=== PATIENT | female | born 1960 | race Caucasian/White ===

== ENCOUNTER → 2016-05-06 | Outpatient (CLI) | payer OTHER | END | disposition home or self-care (01) | LOC: C.LABMFLN 11:44 | PROVIDERS: ATTEND Family Medicine | DX: R19.7 Diarrhea, unspecified (principal) ==

== ENCOUNTER → 2016-12-01 | Outpatient (CLI) | payer OTHER ==
--- NOTE | 2016-12-02 15:31 | MAMMOGRAPHY REPORT ---
BILATERAL DIGITAL SCREENING MAMMOGRAM TOMOSYNTHESIS WITH CAD: 12/01/2016 CLINICAL HISTORY: Routine screening. Patient has no complaints. TECHNIQUE: Breast tomosynthesis in addition to standard 2D mammography was performed. Current study was also evaluated with a Computer Aided Detection (CAD) system. COMPARISON: Comparison is made to exams dated: 11/26/2015 mammogram, 12/11/2014 breast MRI, 11/27/2014 mammogram, 11/27/2014 ultrasound, 11/06/2014 mammogram - [facility], and 06/15/2009 [facility]. BREAST COMPOSITION: The tissue of both breasts is heterogeneously dense, which may obscure small mas ses. FINDINGS: There is an oval circumscribed 8 mm mass in the right lateral breast at approximately 9:00 posteriorly, for which ultrasound and possible spot compression tomosynthesis views are recommended for further evaluation. This may represent a cyst. The remainder of both breasts are stable compared to prior exams, without suspicious masses, calcific ations, or areas of architectural distortion noted. Bilateral benign-appearing calcifications are st able. IMPRESSION: ACR BI-RADS CATEGORY 0: INCOMPLETE EVALUATION: NEED ADDITIONAL IMAGING EVALUATION Right breast mass, for which additional imaging evaluation is recommended. The patient will be love d to schedule an appointment. Approximately 10% of breast cancers are not detected with mammography. A negative mammographic report should not delay biopsy if a clinically suggestive mass is present. Marlys Chan M.D. ah/:12/01/2016 17:25:59 Roll Tube Setter: Smiley MAYORGA(Lazaro)(M), [facility] letter sent: Addl Imaging 0 BI-RADS Code: ACR BI-RADS Category 0: Incomplete Evaluation: Need Additional Imaging Evaluation
== END | disposition home or self-care (01) ==
LOC: C.MAMM 10:02
PROVIDERS: ATTEND Family Medicine
DX: Z12.31 Encounter for screening mammogram for malignant neoplasm of breast (principal); N63 Unspecified lump in breast; M85.80 Other specified disorders of bone density and structure, unspecified site; M81.0 Age-related osteoporosis without current pathological fracture

== ENCOUNTER → 2016-12-13 | Outpatient (CLI) | payer OTHER ==
--- NOTE | 2016-12-13 15:13 | MAMMOGRAPHY REPORT ---
ULTRASOUND OF BOTH BREASTS: 12/13/2016 CLINICAL HISTORY: 56-year-old woman called back from screening mammography for a newly visualized ova l 7 x 4 mm mass in the approximate 9:00 right breast. COMPARISON: Comparison is made to exams dated: 12/01/2016 mammogram, 11/26/2015 mammogram, 11/27/2014 m ammogram, 11/27/2014 ultrasound, 11/06/2014 mammogram - [facility], and 06/15/2009 mamm ogram - [facility]. FINDINGS: Real-time high-resolution sonographic evaluation was performed in the lateral right breast approximate 7:00 through 10:00 axes to assess for the newly visualized oval 7 x 4 mm mammographic ma ss. In the 8:00 axis, 4 cm from the nipple, there is an oval parallel circumscribed anechoic benign simple cyst with posterior acoustic enhancement, measuring 5.5 x 2.6 x 4.6 mm. This correlates well in size, shape and location as the mammographic mass and is benign. No other suspicious solid or cys tic mass is seen in the adjacent 7:00 or 9:00 axes. IMPRESSION: ACR BI-RADS CATEGORY 2: BENIGN The newly visualized oval circumscribed subcentimeter mass in the posterior right breast correlates w ith a benign anechoic simple cyst on ultrasound, identified in the 8:00 axis, 4 cm from the nipple. There is no targeted sonographic evidence of malignancy in the right breast. Return to annual mammogr am screening schedule is recommended. Marianne Posada M.D. ay/:12/13/2016 12:36:32 Attending Technologist: Mazin MAYORGA(Lazaro)(M), [facility] Chrome Polisher: Dr. Marianne Posada, [facility] letter sent: Normal 1/2 BI-RADS Code: ACR BI-RADS Category 2: Benign
== END | disposition home or self-care (01) ==
LOC: C.MAMM 10:44
PROVIDERS: ATTEND Family Medicine
DX: N63 Unspecified lump in breast (principal)

== ENCOUNTER → 2017-01-18 | Outpatient (CLI) | payer OTHER ==
[2017-01-18 13:35] LABS: ALT/SGPT 30 U/L (12-78); BLOOD UREA NITROGEN 13 mg/dl (7-18); BUN/CREATININE RATIO 21.5 (10-20); CALCIUM 9.2 mg/dl (8.5-10.1); CARBON DIOXIDE 24 mmol/L (21-32); CHLORIDE 108 mmol/L (98-107); CHOLESTEROL 197 mg/dl (0-200); GLUCOSE 99 mg/dl (70-99); POTASSIUM 3.7 mmol/L (3.5-5.1); SODIUM 140 mmol/L (136-145); TRIGLYCERIDES 73 mg/dl (0-150); VERY LOW DENSITY LIPOPROT CALC 15 mg/dl
[2017-01-18 13:38] LABS: ALB/GLOB RATIO 1.1 (0.9-2); ALKALINE PHOSPHATASE 78 U/L (45-117); AST/SGOT 16 U/L (15-37); CHOLESTEROL/HDL RATIO 4.1; HDL CHOLESTEROL 48 mg/dl; LDL CHOLESTEROL CALCULATED 134 mg/dl
[2017-01-18 13:42] LABS: HEMATOCRIT 37.4 % (37-47); MEAN CELL VOLUME 91.7 fL (80-100); MEAN CORPUSCULAR HEMOGLOBIN 32.1 pg (25-34); MEAN PLATELET VOLUME 10.1 fL (7.4-10.4); PLATELET COUNT 372 K/uL (130-400); RED BLOOD COUNT 4.08 M/uL (4.2-5.4); WHITE BLOOD COUNT 9.02 K/uL (4.8-10.8)
== END | disposition home or self-care (01) ==
LOC: C.LABMFLN 07:07
PROVIDERS: ATTEND Family Medicine
DX: E78.5 Hyperlipidemia, unspecified (principal); M81.8 Other osteoporosis without current pathological fracture; A04.72 Enterocolitis due to Clostridium difficile, not specified as recurrent

== ENCOUNTER → 2017-07-19 | Outpatient (CLI) | payer OTHER ==
[2017-07-19 17:36] LABS: BASO % 0.3 %; BASO ABS # 0.04 K/uL (0-0.2); EOS % 0.5 %; EOS ABS # 0.06 K/uL (0-0.5); HEMATOCRIT 37.7 % (37-47); HEMOGLOBIN 12.9 g/dL (12.0-16.0); IG# 0.03 K/uL (0.00-0.02); LYMPH % 19.9 %; MEAN CELL VOLUME 92.4 fL (80-100); MEAN CORPUSCULAR HEMOGLOBIN 31.6 pg (25-34); MEAN CORPUSCULAR HGB CONC 34.2 g/dl (32-36); MEAN PLATELET VOLUME 10.1 fL (7.4-10.4); MONO % 8.2 %; MONO ABS # 0.99 K/uL (0.11-0.59); NEUT % 70.9 %; NEUT ABS # 8.56 K/uL (1.4-6.5); PLATELET COUNT 378 K/uL (130-400); RED CELL DISTRIBUTION WIDTH CV 13.2 % (11.5-14.5); RED CELL DISTRIBUTION WIDTH SD 44.3 fL (36.4-46.3); WHITE BLOOD COUNT 12.08 K/uL (4.8-10.8)
== END | disposition home or self-care (01) ==
LOC: C.LABMFLN 13:29
PROVIDERS: ATTEND Family Medicine
DX: R10.9 Unspecified abdominal pain (principal)